=== PATIENT | male | born 1945 | race Caucasian/White ===

== ENCOUNTER 2024-06-08 10:56 | Emergency (ER) | payer OTHER, SELFPAY ==
[2024-06-08 10:57] VITALS: BP 111/89; PULSE 73; RESP 18; TEMP 36.4; O2SAT 99; BMI 19.9
--- NOTE | 2024-06-08 11:11 | EDS_ITS ---
HPI History of Present Illness Chief Complaint: Other, Pain/Inj Informant: patient Onset/Context/Timing Onset: Month(s) (1) Context: Gradual Onset Timing: Continuous Quality: Aching and sore Location: Right neck, back, hip, and thigh. Worsened by: Nothing Relieved by: Steroids Narrative Narrative: Patient presents with pain to his right side that has been getting worse over the past month. Patient describes as aching and sore. Patient states it starts in his neck and goes into his right thigh. Patient states he was given a prescription for steroids which seemed to help. Patient states that after he finished the steroids he was given a prescription for meloxicam. Patient states he has been taking this with no relief. Patient denies any trauma or injury. Patient denies any paresthesias or weakness. Patient denies any fevers or chills. [facility] Medical History (Updated 06/08/24 @ 13:[address] Davidson Estrada DO) Hypercholesterolemia Hypertension Diabetes mellitus Allergy/AdvReac Type Severity Reaction Status Date / Time lisinopril AdvReac Mild Other Verified 06/08/24 10:57 Surgical History (Updated 06/08/24 @ 11:[address] Davidson Estrada DO) History of cataract surgery S/P trigger finger release Hx of vasectomy Social History Smoking Status: Never smoker ROS ROS ED Constitutional Constitutional ED: Denies chills or fever(s) Eyes Eyes: Denies blurry vision or change in vision ENT ENT ED: Denies rhinorrhea or sore throat Cardiovascular Cardiovascular: Denies chest pain or palpitations Respiratory/Chest Respiratory/Chest: Denies cough or dyspnea Gastrointestinal Gastrointestinal: Denies nausea or vomiting Genitourinary Genitourinary ED: Denies dysuria or hematuria Musculoskeletal Musculoskeletal: Reports back pain and neck pain Integumentary Denies abscess or rash Neurologic Neurologic: Denies headache(s) or weakness Allergic/Immunologic Allergic/Immunologic ED: Denies mouth swelling or urticaria EXAM Physical Exam Const Vital Signs: 06/08/24 10:57 06/08/24 11:05 Temperature 97.6 F L Temperature Source Oral Pulse Rate 73 Respiratory Rate 18 Respiratory Pattern Normal Blood Pressure 111/89 H Blood Pressure Mean 96 Pulse Ox 99 Oxygen Delivery Method Room Air Positive well nourished and well developed Constitutional Narrative: BMI is 19.9 General Appearance ED: well developed and NAD HEENT Reports moist mucous membranes Neck supple and no JVD Chest Wall inspection of chest normal and palpation of chest normal Resp normal respiratory effort and clear to auscultation bilaterally Cardio regular rate and regular rhythm GI non-tender and non-distended Palpation: soft Neuro oriented x3, CN's II-XII intact bilaterally and no sensory deficits noted Sensorium / Orientation: alert Motor Exam: strength 5/5 throughout Psych mental status grossly normal MDM MDM MDM Narrative Medical decision making narrative: Differential diagnosis includes but is not limited to cervical radiculopathy, lumbar radiculopathy, pneumonia, bronchitis, viral illness, dehydration, electrolyte abnormality, urinary tract infection, and sciatica. CT scan of the cervical spine will be obtained to assess for cervical radiculopathy, fracture, and spondylolisthesis. X-rays of the lumbar spine will be obtained to assess for spondylolisthesis and compression fracture. X-rays of the right hip will be obtained to assess for degenerative arthritis. Chest x-ray will be obtained to assess for pneumonia or bronchitis. CBC will be obtained to assess for leukocytosis and anemia. Basic metabolic profile will be obtained to assess for electrolyte abnormality and renal function. Urinalysis will be obtained to assess for urinary tract infection and hematuria. Lab Data Attestation: I reviewed the patient's lab results. Lab results narrative: CBC was reviewed. There is a mild anemia with a hemoglobin of 11.6 and hematocrit 35.3. Platelets were slightly elevated at 520. Basic metabolic profile was reviewed and was essentially within normal limits with the exception of an elevated glucose of 198. Urinalysis was reviewed. There is no evidence of urinary tract infection or hematuria. Labs: Laboratory Results - last 24 hr 06/08/24 06/08/24 11:46 11:55 WBC 9.5 RBC 3.99 L Hgb 11.6 L Hct 35.3 L MCV 88.5 MCH 29.1 MCHC 32.9 RDW Std Deviation 44.8 H RDW Coeff of Iain 13.8 Plt Count 520 H MPV 8.9 Immature Gran % (Auto) 2.600 H Neut % (Auto) 67.0 Lymph % (Auto) 17.6 L Ramsey % (Auto) 11.1 H Eos % (Auto) 1.2 Baso % (Auto) 0.5 Absolute Neuts (auto) 6.3 Absolute Lymphs (auto) 1.67 Nucleated RBC % 0 Sodium 136 Potassium 4.7 Chloride 101 Carbon Dioxide 21.4 Anion Gap 14 BUN 19 Creatinine 1.05 Estim Creat Clear Calc 49.41 L Est GFR (MDRD) Non-Af 72 BUN/Creatinine Ratio 17.9 Glucose 198 H Calcium 9.5 Urine Color Yellow Urine Clarity Clear Urine pH 5.0 Ur Specific [place] 1.020 Urine Protein 30 H Urine Glucose (UA) 250 H Urine Ketones 5 H Urine Occult Blood Negative Urine Nitrite Negative Urine Bilirubin Negative Urine Urobilinogen Normal Ur Leukocyte Esterase 25 H Urine RBC 0 SEEN Urine WBC 0 SEEN Ur Squamous Epith Cells 0-5 SEEN Urine Bacteria 0 SEEN Urine Mucus 0 SEEN Radiography Chest X-Ray - ED: 2 View, Read by ED Physician, Read by Radiologist and No Acute Disease X-Ray: LS SPine, Right Hip, Read by ED Physician, Read by Radiologist, No Fracture and DJD Diagnostic Testing: Clinical Impression(s) from Imaging Studies Cervical Spine CT 06/08/24 11:32 IMPRESSION: NO ACUTE CERVICAL FRACTURE. Reading Location: [facility] Hip/Pelvis X-Ray 06/08/24 11:32 IMPRESSION: Degenerative changes as above. Reading Location: [facility] Lumbar Spine X-Ray 06/08/24 11:32 IMPRESSION: Mild degenerative disc disease, otherwise unremarkable. Reading Location: [facility] Chest X-Ray 06/08/24 11:33 IMPRESSION: No acute cardiopulmonary process. Reading Location: [facility] CT scan of the cervical spine was obtained. There is no acute fracture or spondylolisthesis. There is no soft tissue swelling. There are some degenerative changes noted in the facet joints. This was interpreted by the radiologist and was also independently reviewed by myself. X-rays of the right hip were obtained. There are 3 views. On my independent interpretation, there is no acute fracture or dislocation. There are some degenerative changes noted. Radiologist also interpreted the x-rays and agrees. X-rays of the lumbar spine were obtained. There are 2 views. On my independent interpretation, there is a mild scoliosis. There are some degenerative changes. There is no acute fracture or spondylolisthesis. Radiologist also interpreted the x-rays and agrees. PA and lateral chest x-ray was obtained. There are 2 views. On my independent interpretation, lung chin are clear. There is normal cardiac silhouette. Bony thorax is normal. There is no acute process noted. Radiologist also interpreted the x-ray and agrees. Treatment and Re-Evaluation :: Patient was given IV fluids. Patient was feeling better on reevaluation. Patient was advised of the findings. Patient was instructed to continue his Mobic as prescribed. Patient was instructed to follow-up with his primary care physician in 5 to 7 days. Patient was instructed return if worse in any way. Patient understood and was agreeable with plan. All questions were answered. Discharge Plan Triage Chief Complaint: Other, Pain/Inj ED Provider: Davidson Estrada Dx/Rx/DC Orders Clinical Impression: Cervical myofascial strain, Degenerative arthritis, Diabetes mellitus Instructions: ED Neck Sprain or Strain, ED Osteoarthritis [facility] Referrals: NOT,DEFINED [Non-Staff] - [facility] [Primary [facility] Provider[facility] - 5-7 Days Print Language: Occitan Disposition Disposition: Home, Self Care
--- NOTE | 2024-06-08 11:32 | RAD_ITS ---
PROCEDURE: LUMBAR SPINE 2 OR 3 VIEWS 06/08/2024 REASON FOR EXAM: INJURY/PAIN TECHNIQUE: 2 radiographic view(s) of the lumbar spine COMPARISON: None. FINDINGS: Vertebrae: Normal vertebral body height. Discs: Moderate loss of disc height at L3-4. Mild loss of disc height at L4-5 remaining disc heights are preserved. Alignment: Normal AP alignment with normal mild lumbar lordosis. Other: RAD/Lumbar Spine 2 or 3 Views IMPRESSION: Mild degenerative disc disease, otherwise unremarkable. Reading [facility]
--- NOTE | 2024-06-08 11:32 | CT_ITS ---
PROCEDURE: SPINE CERVICAL WITHOUT CONTRAS 06/08/2024 REASON FOR EXAM: INJURY/PAIN TECHNIQUE: Cervical spine CT without contrast. Coronal and Sagittal reconstruction series were provided. One or more dose reduction techniques were used (e.g., Automated exposure control, adjustment of the mA and/or kV according to patient size, use of iterative reconstruction technique RADIATION DOSE SUMMARY: CTDlvol: 16.79 mGy DLP: 333.97 mGycm FINDINGS: Alignment: Normal cervical lordosis. Vertebrae: Normal vertebral body heights. No fractures identified. Soft Tissues: Disc heights are fairly well preserved. No significant degenerative disc disease. Other: Multilevel moderately prominent facet joint osteoarthritis CT/Spine Cervical without Contras IMPRESSION: NO ACUTE CERVICAL FRACTURE. Reading Location: [facility]
--- NOTE | 2024-06-08 11:32 | RAD_ITS ---
EXAM: XR Right Hip With Pelvis When Performed, 2 or 3 Views CLINICAL INDICATION: INJURY/PAIN TECHNIQUE: Two or three views of the right hip with pelvis when performed. COMPARISON: No relevant prior studies available. FINDINGS: BONES/JOINTS: Mild degenerative change of the hip joints, bilaterally. No acute fracture. No dislocation. SOFT TISSUES: Unremarkable. RAD/HIP, UNI W/ Pelvis 2-3 Views IMPRESSION: Degenerative changes as above. Reading Location: [facility]
--- NOTE | 2024-06-08 11:33 | RAD_ITS ---
EXAM: XR Chest, 2 Views CLINICAL INDICATION: PAIN TECHNIQUE: Frontal and lateral views of the chest. COMPARISON: No relevant prior studies available. FINDINGS: LUNGS AND PLEURAL SPACES: Unremarkable. No consolidation. No pneumothorax. HEART: Unremarkable. No cardiomegaly. MEDIASTINUM: Unremarkable. Normal mediastinal contour. BONES/JOINTS: Unremarkable. No acute fracture. RAD/Chest PA and Lateral IMPRESSION: No acute cardiopulmonary process. Reading Location: [facility]
[2024-06-08] MEDS: 0.9% Normal Saline (1000mL) 1,000 ML 1000 ML IV (11:44)
[2024-06-08 12:04] LABS: Bacteria 0 SEEN /hpf (None Seen); Mucous, Urine 0 SEEN /hpf (<or=2+); Red Blood Cells-Urine 0 SEEN /hpf (0-5); White Blood Cells 0 SEEN /hpf (0-5)
[2024-06-08 12:09] LABS: Color, Urine Yellow (Yellow); Glucose, Dipstick 250 mg/dl (Normal); Ketone-Dipstick 5 mg/dl (Negative); Leukocyte Esterase-Dipstick 25 /ul (Negative); Nitrite-Dipstick Negative (Negative); Occult Blood-Urine Negative /ul (Negative); Protein-Dipstick 30 mg/dl (Negative); Urine Bilirubin Dipstick Negative (Negative); Urine Clarity Clear (Clear); Urine Urobilinogen Normal (Normal)
[2024-06-08 12:11] LABS: Absolute Lymphocyte Count 1.67 X10^3/uL (0.83-4.51); Absolute Neutrophil Count 6.3 X10^3/uL (2.0-7.7); Basophil# 0.05 X10^3/uL; Basophil% 0.5 % (0-1); Eosinophil# 0.11 X10^3/uL; Eosinophils% 1.2 % (0-5); Hematocrit 35.3 % (40-54); Hemoglobin 11.6 g/dL (13.0-16.5); Lymphocyte # 1.67 X10^3/ul (0.83-4.51); Lymphocyte % 17.6 % (19-41); Mean Corp Hgb Conc 32.9 g/dL (32-36); Mean Corpuscular Hgb 29.1 pg (27.0-32.0); Mean Corpuscular Volume 88.5 fL (80-94); Mean Platelet Vol. 8.9 fl (6.2-12.0); Monocyte# 1.05 X10^3/uL; Monocyte% 11.1 % (0-10); NRBC Flagged by Analyzer 0 % (0-5); Neutrophil # 6.34 X10^3/uL (2.7-7.7); Platelet Count 520 K/mm3 (150-450); RBC Distribution Width CV 13.8 % (11.6-14.6); RBC Distribution Width SD 44.8 fl (35.1-43.9); Red Blood Count 3.99 M/mm3 (4.6-6.2); White Blood Count 9.5 K/mm3 (4.4-11.0)
[2024-06-08 12:21] LABS: Squamous Epithelial Cells - UA 0-5 SEEN /hpf (0-5)
[2024-06-08 12:41] LABS: Anion Gap 14 (5-15); BUN 19 mg/dL (4-19); BUN/Creat Ratio 17.9 RATIO (10-20); Calcium,Total 9.5 mg/dL (7.6-11.0); Carbon Dioxide 21.4 mmol/L (21.0-32.0); Chloride 101 mmol/L (98-108); Creatinine, Serum 1.05 mg/dL (0.70-1.20); EST Glomerular Filtration Rate 72 (>60); Estimated Creatinine Clearance 49.41 ml/min (50-250); Glucose 198 mg/dL (70-99); Potassium 4.7 mmol/L (3.3-5.1); Sodium Level 136 mmol/L (133-145)
== END 2024-06-08 13:59 | disposition home or self-care (01) ==
PROVIDERS: Emergency Provider Emergency Medicine; Visit Provider Emergency Medicine
DX: S16.1XXA Strain of muscle, fascia and tendon at neck level, initial encounter (principal); E11.9 Type 2 diabetes mellitus without complications; I10 Essential (primary) hypertension; E78.00 Pure hypercholesterolemia, unspecified; M19.90 Unspecified osteoarthritis, unspecified site; X58.XXXA Exposure to other specified factors, initial encounter
CPT/HCPCS: 71046; 72100; 72125; 73502; 80048; 81001; 85025; 96360; 96361; 99282; A4216